=== PATIENT | male | born 1955 | race African-American/Black ===

== ENCOUNTER 2016-12-19 17:55 | Emergency (ER) | payer OTHER ==
[~2016-12-19 17:55] MED LIST: ACET1CAP18 PO; ASPI81CH14 PEG; BISA5TAB64 PEG; CLON0.2T G-TUBE; GABA100C4 PEG; GUAI100S10 PEG; HYDR12.57 PEG; LANTUS2P SQ; LEXA20TA G-TUBE; LISI40TA PEG; METO50TA G-TUBE; SENNSYP G-TUBE; ZANT150T2 PEG
[2016-12-19] MEDS ORDERED: IOHEXOL 350 MG/ML 10 ML VIAL (for RAD DIAG) IVCONTRAST ONE (17:56)
[2016-12-19] MEDS ORDERED: SODIUM CHLOR 0.9% 1000 ML INJ 1,000 ML IV SCH (19:07)
[2016-12-19 19:08] VITALS: BP 117/89; PULSE 58; RESP 18; TEMP 98.1; O2SAT 96
--- NOTE | 2016-12-19 19:12 | PD ---
HPI Chief Complaint: rule out sepsis Time Seen by Provider: 19:01 Travel History International Travel<30 days: No Contact w/Intl Traveler<30days: No Traveled to known affect area: No History of Present Illness HPI The patient is a 61-year-old male who presents to the emergency department via [facility] from the care home to rule out sepsis. The patient had a G-tube removed 2-3 weeks ago, then started having drainage from the wound which was cultured and apparently grew MRSA. The patient was sent to the emergency department to rule out sepsis. The patient has a history of previous stroke with right hemiplegia, is able to answer questions, but speech is difficult to understand. He denies any fever, nausea, vomiting, or abdominal pain. He does note his abdomen is somewhat distended, but states that is chronic. He denies abdominal pain or decrease in bowel movements or the passage of flatus. The patient states he is currently asymptomatic. Symptoms are mild, also exacerbated after G-tube was removed, no current alleviating factors. PFSH Past Medical History Depression: Yes Cerebrovascular Accident: Yes (R side paralysis, aphasia, dysphagia) Dementia: Yes Diabetes: Yes Diminished Hearing: No GERD: Yes Hypertension: Yes Neurologic: Yes (CVA) Past Surgical History Abdominal Surgery: Yes (PEG TUBE) Other Surgery: Yes ((UNKNOWN SX) MIDLINE VERTICAL SURGICAL SCAR ) Social History Alcohol Use: No Tobacco Use: No Substance Use: No Allergies-Medications (Allergen,Severity, Reaction): Coded Allergies: No Known Allergies (Verified , 10/06/15) Reported Meds & Prescriptions Reported Meds & Active Scripts Active Reported Metformin (Metformin HCl) 1,000 Mg Tab 1,000 Mg PO BIDPC Lantus Inj (Insulin Glargine) 1,000 Unit/10 Ml Vial 28 Units SQ HS Glucagon Emergency Inj Kit (Glucagon (Rdna) Inj Kit) 1 Mg Kit 1 Mg IM ONCE PRN Clonidine (Clonidine HCl) 0.2 Mg Tab 0.2 Mg PO BID Cephalexin 500 Mg Cap 500 Mg PO Q8H Biscolax Supp (Bisacodyl) 10 Mg Supp 10 Mg RECTAL DAILY PRN Atorvastatin (Atorvastatin Calcium) 10 Mg Tab 10 Mg PO HS Tylenol (Acetaminophen) 325 Mg Tab 650 Mg PO Q4HR PRN Lisinopril 40 Mg Tab 40 Mg PEG DAILY Hold for systolic B/P <100 Hydrochlorothiazide 12.5 Mg Cap 25 Mg PEG DAILY Hold for systolic B/P <100 Senna Liq (Senna) 176 Mg/5 Ml Syp 176 Mg G-TUBE DAILY Lantus Inj (Insulin Glargine) 1,000 Unit/10 Ml Vial 12 Units SQ AC BREAKFAST Hold for blood sugar 120 or less Gabapentin 100 Mg Cap 100 Mg PEG TID Metoprolol Tartrate 50 Mg Tab 50 Mg G-TUBE BID Hold if systolic B/P <110 Zantac (Ranitidine HCl) 150 Mg Tab 150 Mg PEG HS Kp Bisacodyl (Bisacodyl) 5 Mg Tab 5 Mg PEG BID PRN Lexapro (Escitalopram Oxalate) 20 Mg Tab 10 Mg G-TUBE DAILY Aspirin Adult Low Strength (Aspirin) 81 Mg Chew 81 Mg PEG DAILY Review of Systems Except as stated in HPI: all other systems reviewed are Neg General / Constitutional: No: Fever Cardiovascular: No: Chest Pain or Discomfort Respiratory: No: Shortness of Breath Gastrointestinal: No: Nausea, Vomiting, Abdominal Pain Musculoskeletal: No: Pain Skin: Positive Other (as noted in the history present illness) Physical Exam Narrative GENERAL: Awake, alert, pleasant 61-year-old male who appears his stated age and is in no acute respiratory distress. SKIN: Focused skin assessment warm/dry. HEAD: Atraumatic. Normocephalic. EYES: Pupils equal and round. No scleral icterus. No injection or drainage. ENT: No nasal bleeding or discharge. Mucous membranes pink and moist. NECK: Trachea midline. No JVD. CARDIOVASCULAR: Regular rate and rhythm. No murmur appreciated. Heart rate in the 60s. RESPIRATORY: No accessory muscle use. Clear to auscultation. Breath sounds equal bilaterally. GASTROINTESTINAL: Abdomen soft, mild distention, dressing in place over old gastrostomy tube site, minimal clear drainage. No rebound tenderness, guarding , rigidity. No surrounding erythema. MUSCULOSKELETAL: No obvious deformities. No clubbing. No cyanosis. Mild edema to the right lower extremity. NEUROLOGICAL: Awake and alert. Asymmetric right facial droop. Paralysis of the right upper extremity and right lower extremity. He is able to move his left upper extremity and left lower extremity without difficulty. PSYCHIATRIC: Appropriate mood and affect; insight and judgment normal. Data Data Last Documented VS Vital Signs Date Time Temp Pulse Resp B/P (MAP) Pulse Ox O2 Delivery O2 Flow Rate FiO2 12/19/16 19:42 64 20 12/19/16 19:37 96 Room Air 12/19/16 19:08 98.1 117/89 (98) Orders Orders Complete Blood Count With Diff (12/19/16 19:07) Comprehensive Metabolic Panel (12/19/16 19:07) Lactic Acid (12/19/16 19:07) Ct Abd/Pel W Iv Contrast(Rout) (12/19/16 19:07) Iv Access Insert/Monitor (12/19/16 19:07) Ecg Monitoring (12/19/16 19:07) Oximetry (12/19/16 19:07) Sodium Chlor 0.9% 1000 Ml Inj (Ns 1000 M (12/19/16 19:07) Sodium Chloride 0.9% Flush (Ns Flush) (12/19/16 19:15) Blood Culture (12/19/16 19:07) Iohexol 350 Inj (Omnipaque 350 Inj) (12/19/16 17:56) Labs Laboratory Tests Test 12/19/16 19:30 White Blood Count 8.4 TH/MM3 Red Blood Count 5.13 MIL/MM3 Hemoglobin 14.1 GM/DL Hematocrit 40.8 % Mean Corpuscular Volume 79.5 FL Mean Corpuscular Hemoglobin 27.5 PG Mean Corpuscular Hemoglobin Concent 34.7 % Red Cell Distribution Width 15.2 % Platelet Count 216 TH/MM3 Mean Platelet Volume 8.1 FL Neutrophils (%) (Auto) 62.1 % Lymphocytes (%) (Auto) 28.3 % Monocytes (%) (Auto) 7.7 % Eosinophils (%) (Auto) 1.4 % Basophils (%) (Auto) 0.5 % Neutrophils # (Auto) 5.2 TH/MM3 Lymphocytes # (Auto) 2.4 TH/MM3 Monocytes # (Auto) 0.6 TH/MM3 Eosinophils # (Auto) 0.1 TH/MM3 Basophils # (Auto) 0.0 TH/MM3 CBC Comment DIFF FINAL Differential Comment Blood Urea Nitrogen 19 MG/DL Creatinine 1.03 MG/DL Random Glucose 145 MG/DL Total Protein 7.4 GM/DL Albumin 3.0 GM/DL Calcium Level 8.7 MG/DL Alkaline Phosphatase 130 U/L Aspartate Amino Transf (AST/SGOT) 15 U/L Alanine Aminotransferase (ALT/SGPT) 29 U/L Total Bilirubin 0.4 MG/DL Sodium Level 137 MEQ/L Potassium Level 4.0 MEQ/L Chloride Level 100 MEQ/L Carbon Dioxide Level 30.4 MEQ/L Anion Gap 7 MEQ/L Estimat Glomerular Filtration Rate 89 ML/MIN Lactic Acid Level 2.2 mmol/L [facility] Medical Decision Making Medical Screen Exam Complete: Yes Emergency Medical Condition: Yes Medical Record Reviewed: Yes Interpretation(s) Last Impressions Abdomen/Pelvis CT 12/19/16 6297 Signed Impressions: Service Date/Time: Monday, December 19, 2016 22:47 - CONCLUSION: No evidence of abscess or other complication associated with previous gastrostomy tube. Gallstones. Left renal cysts. Prostatic enlargement. Justice Man MD Laboratory Tests Test 12/19/16 19:30 White Blood Count 8.4 TH/MM3 Red Blood Count 5.13 MIL/MM3 Hemoglobin 14.1 GM/DL Hematocrit 40.8 % Mean Corpuscular Volume 79.5 FL Mean Corpuscular Hemoglobin 27.5 PG Mean Corpuscular Hemoglobin Concent 34.7 % Red Cell Distribution Width 15.2 % Platelet Count 216 TH/MM3 Mean Platelet Volume 8.1 FL Neutrophils (%) (Auto) 62.1 % Lymphocytes (%) (Auto) 28.3 % Monocytes (%) (Auto) 7.7 % Eosinophils (%) (Auto) 1.4 % Basophils (%) (Auto) 0.5 % Neutrophils # (Auto) 5.2 TH/MM3 Lymphocytes # (Auto) 2.4 TH/MM3 Monocytes # (Auto) 0.6 TH/MM3 Eosinophils # (Auto) 0.1 TH/MM3 Basophils # (Auto) 0.0 TH/MM3 CBC Comment DIFF FINAL Differential Comment Blood Urea Nitrogen 19 MG/DL Creatinine 1.03 MG/DL Random Glucose 145 MG/DL Total Protein 7.4 GM/DL Albumin 3.0 GM/DL Calcium Level 8.7 MG/DL Alkaline Phosphatase 130 U/L Aspartate Amino Transf (AST/SGOT) 15 U/L Alanine Aminotransferase (ALT/SGPT) 29 U/L Total Bilirubin 0.4 MG/DL Sodium Level 137 MEQ/L Potassium Level 4.0 MEQ/L Chloride Level 100 MEQ/L Carbon Dioxide Level 30.4 MEQ/L Anion Gap 7 MEQ/L Estimat Glomerular Filtration Rate 89 ML/MIN Lactic Acid Level 2.2 mmol/L Differential Diagnosis Differential diagnosis includes abscess, cellulitis, infected wound, wound infection, sepsis. Narrative Course IV was established, labs are drawn and sent, and the patient was placed on cardiac telemetry monitoring and continuous pulse oximetry monitoring. Blood culture and lactic acid were sent to lab. CT of the abdomen and pelvis with IV contrast was ordered to rule out abscess. The patient was administered IV fluids. Lactic acid 2.2, the patient received IV fluids white count is normal. CT the abdomen and pelvis reveals no obvious abscess. The patient was placed on Bactrim and transferred back to the care home. Diagnosis Primary Impression: Infected wound Patient Instructions: General Instructions Additional Instructions: Medications as directed. Follow-up with your primary physician. Bactrim as directed. Please provide the patient a copy of CT results and lab results at discharge. Med/Other Pt SpecificInfo: Prescription(s) given Scripts Sulfamethoxazole-Trimethoprim (Bactrim DS) 800-160 Mg Tab 1 TAB PO BID for Infection, #20 TAB 0 Refills Prov: Rahul Caballero MD 12/19/16 Disposition: DISCHARGE HOME Condition: Stable Rahul Caballero MD Dec 19, 2016 19:12
[2016-12-19] MEDS ORDERED: SODIUM CHLORIDE 0.9% FLUSH 10 ML FLUSH IV FLUSH PRN (19:15)
[2016-12-19 19:37] VITALS: O2SAT 96
[2016-12-19] MEDS ORDERED: CEPH500C PO (19:55)
[2016-12-19] MEDS ORDERED: BISC10SU RECTAL (19:55)
[2016-12-19] MEDS ORDERED: TYLE325T PO (19:55)
[2016-12-19] MEDS ORDERED: ATOR10TA15 PO (19:55)
[2016-12-19] MEDS ORDERED: CLON0.2T PO (19:55)
[2016-12-19] MEDS ORDERED: GLUC1KIT IM (19:55)
[2016-12-19] MEDS ORDERED: LANTUS2P SQ (19:55)
[2016-12-19] MEDS ORDERED: METF1000 PO (19:55)
[2016-12-19 20:01] LABS: AUTOMATED NEUTROPHIL # 5.2 TH/MM3 (1.8-7.7); BASOPHIL % 0.5 % (0.0-2.0); EOSINOPHIL # 0.1 TH/MM3 (0-0.4); EOSINOPHIL % 1.4 % (0.0-4.0); HEMATOCRIT 40.8 % (39.0-51.0); HEMO FLAGS DIFF FINAL; LYMPH % 28.3 % (9.0-44.0); LYMPHOCYTE # 2.4 TH/MM3 (1.0-4.8); MEAN CELL VOLUME 79.5 FL (80.0-100.0); MEAN CORPUSCULAR HEMOGLOBIN 27.5 PG (27.0-34.0); MEAN CORPUSCULAR HGB CONC 34.7 % (32.0-36.0); MONO % 7.7 % (0.0-8.0); NEUT % 62.1 % (16.0-70.0); PLATELET COUNT 216 TH/MM3 (150-450); RED BLOOD COUNT 5.13 MIL/MM3 (4.50-5.90); RED CELL DISTRIBUTION WIDTH 15.2 % (11.6-17.2); WHITE BLOOD COUNT 8.4 TH/MM3 (4.0-11.0)
[2016-12-19 20:47] LABS: ANION GAP 7 MEQ/L (5-15); AST (GOT) 15 U/L (15-37); BICARBONATE 30.4 MEQ/L (21.0-32.0); BLOOD UREA NITROGEN 19 MG/DL (7-18); CHLORIDE 100 MEQ/L (98-107); GLOMERULAR FILTRATION RATE 89 ML/MIN (>89); SODIUM (NA) 137 MEQ/L (136-145)
[2016-12-19 20:48] LABS: ALT (GPT) 29 U/L (12-78)
[2016-12-19 20:50] LABS: ALKALINE PHOSPHATASE 130 U/L (45-117); TOTAL BILIRUBIN ADULT 0.4 MG/DL (0.2-1.0)
--- NOTE | 2016-12-19 23:10 | RADRPT ---
EXAM DATE/TIME: 12/19/2016 22:47 [facility] COMPARISON: No previous studies available for comparison. INDICATIONS : G-tube removal. Evaluate for abscess. IV CONTRAST: 100 cc Omnipaque 350 (iohexol) IV ORAL CONTRAST: No oral contrast ingested. RADIATION DOSE: 33.48 CTDIvol (mGy) ; Patient body habitus MEDICAL HISTORY : Dementia. Cerebrovascular disease. Hypertension.Diabetes SURGICAL HISTORY : Peg tube ENCOUNTER: Initial ACUITY: 1 day PAIN SCALE: 0/10 LOCATION: abdomen TECHNIQUE: Volumetric scanning of the abdomen and pelvis was performed. Using automated exposure control and ad justment of the mA and/or kV according to patient size, radiation dose was kept as low as reasonably achievable to obtain optimal diagnostic quality images. DICOM format image data is available electro nically for review and comparison. FINDINGS: LOWER LUNGS: The visualized lower lungs are clear. LIVER: Homogeneous density without lesion. There is no dilation of the biliary tree. There are multiple gal lstones in the gallbladder. SPLEEN: Normal size without lesion. PANCREAS: Within normal limits. KIDNEYS: Cysts involving the left kidney, largest a 3.4 cm cyst arising in the lateral upper pole cortex. No e vidence of hydronephrosis. Right kidney is unremarkable. ADRENAL GLANDS: 15 mm low density mass involving the left adrenal gland is likely benign adenoma. Right adrenal unrem arkable VASCULAR: There is no aortic aneurysm. BOWEL/MESENTERY: Tract associated with previous gastrostomy. No evidence of abscess or other complication. Bowel is ot herwise unremarkable.. ABDOMINAL WALL: Gastrostomy tract scar upper left paramedian abdomen RETROPERITONEUM: There is no lymphadenopathy. BLADDER: No wall thickening or mass. REPRODUCTIVE: Heterogeneous prostatic enlargement with mild impression on the bladder base. INGUINAL: There is no lymphadenopathy or hernia. MUSCULOSKELETAL: Within normal limits for patient age. CONCLUSION: No evidence of abscess or other complication associated with previous gastrostomy tube. Gallstones. Left renal cysts. Prostatic enlargement. Justice Man MD on December 19, 2016 at 23:02 Board Certified Radiologist. This report was verified electronically.
[2016-12-19] MEDS ORDERED: BACT800T5 PO (23:19)
[2016-12-19] MEDS ORDERED: SULFAMETHOXAZOLE-TRIMETHOPRIM DS 800-160 MG TAB PO ONE (23:30)
[2016-12-20 06:45] VITALS: BP 137/77; PULSE 56; RESP 18; O2SAT 96
[2016-12-20 07:54] VITALS: BP 132/76; PULSE 55; RESP 18; O2SAT 96
== END 2016-12-20 08:31 | disposition home or self-care (01) ==
LOC: NEPE 17:55
DX: L08.9 Local infection of the skin and subcutaneous tissue, unspecified (principal); E11.9 Type 2 diabetes mellitus without complications; I10 Essential (primary) hypertension; F03.90 Unspecified dementia, unspecified severity, without behavioral disturbance, psychotic disturbance, mood disturbance, and anxiety
CPT/HCPCS: 74177; 80053; 83605; 85025; 87040; 96360; 96361; 99285; J7030; Q9967

== ENCOUNTER 2016-12-23 13:07 | Emergency (ER) | payer OTHER ==
[~2016-12-23] VITALS: Ht 177.8 cm; Wt 127.0 kg
[~2016-12-23 13:07] MED LIST changes: -ACET1CAP18 PO; +ATOR10TA15 PO; +BACT800T5 PO; +BISC10SU RECTAL; +CEPH500C PO; -CLON0.2T G-TUBE; +CLON0.2T PO; +GLUC1KIT IM; -GUAI100S10 PEG; +METF1000 PO; +TYLE325T PO
[2016-12-23 13:17] VITALS: BP 103/64; PULSE 51; RESP 20; TEMP 98.8; O2SAT 97
[2016-12-23] MEDS ORDERED: SODIUM CHLORID 0.9% 500 ML INJ 500 ML IV ONE (13:45)
[2016-12-23] MEDS ORDERED: SILVER NITR/POTASSIUM NITRATE APPLICATORS TOPICAL ONE (13:45)
[2016-12-23 14:25] LABS: AUTOMATED NEUTROPHIL # 5.4 TH/MM3 (1.8-7.7); BASOPHIL % 0.4 % (0.0-2.0); EOSINOPHIL # 0.2 TH/MM3 (0-0.4); EOSINOPHIL % 1.8 % (0.0-4.0); HEMATOCRIT 41.8 % (39.0-51.0); HEMO FLAGS DIFF FINAL; LYMPH % 27.8 % (9.0-44.0); LYMPHOCYTE # 2.4 TH/MM3 (1.0-4.8); MEAN CELL VOLUME 79.9 FL (80.0-100.0); MEAN CORPUSCULAR HEMOGLOBIN 27.4 PG (27.0-34.0); MEAN CORPUSCULAR HGB CONC 34.3 % (32.0-36.0); MONO % 7.1 % (0.0-8.0); NEUT % 62.9 % (16.0-70.0); PLATELET COUNT 227 TH/MM3 (150-450); RED BLOOD COUNT 5.23 MIL/MM3 (4.50-5.90); RED CELL DISTRIBUTION WIDTH 15.1 % (11.6-17.2); WHITE BLOOD COUNT 8.5 TH/MM3 (4.0-11.0)
[2016-12-23 14:31] LABS: PROTHROMBIN TIME - PATIENT 10.8 SEC (9.8-11.6)
[2016-12-23 14:39] LABS: BICARBONATE 27.4 MEQ/L (21.0-32.0); POTASSIUM 4.3 MEQ/L (3.5-5.1)
--- NOTE | 2016-12-23 15:02 | PD ---
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 Patient had a G-tube that was taken out 1 month ago. Currently he is on honey thickened diet. He went to sit up today and he started to bleed from his stoma. They were concerned because of the bleeding which was continuous. Patient arrived with a blood pressure in 100s. He is awake. He is able to communicate although he is a aphonic. He is denying of any pain. Patient is not a good historian given his nonverbal status. [facility] Past Medical History Narrative Medical List of his past medical, surgical, social and family history is reviewed from the nursing note. Depression: Yes Cerebrovascular Accident: Yes Dementia: Yes Diabetes: Yes Patient Takes Glucophage: Yes Diminished Hearing: No GERD: Yes Hypertension: Yes Medical other: Yes (APHASIA, DYSPHAGIA, RUE, RLE, RIGHT FACIAL DROOP) Neurologic: Yes (CVA) Past Surgical History Abdominal Surgery: Yes (PEG TUBE) Other Surgery: Yes ((UNKNOWN SX) MIDLINE VERTICAL SURGICAL SCAR ) Social History Alcohol Use: No Tobacco Use: No Substance Use: No Allergies-Medications (Allergen,Severity, Reaction): Coded Allergies: No Known Allergies (Verified , 12/23/16) Comments No known drug allergies. Reported Meds & Prescriptions Reported Meds & Active Scripts Active Bactrim DS (Sulfamethoxazole-Trimethoprim) 800-160 Mg Tab 1 Tab PO BID Reported Metformin (Metformin HCl) 1,000 Mg Tab 1,000 Mg PO BIDPC Lantus Inj (Insulin Glargine) 1,000 Unit/10 Ml Vial 28 Units SQ HS Glucagon Emergency Inj Kit (Glucagon (Rdna) Inj Kit) 1 Mg Kit 1 Mg IM ONCE PRN Clonidine (Clonidine HCl) 0.2 Mg Tab 0.2 Mg PO BID Biscolax Supp (Bisacodyl) 10 Mg Supp 10 Mg RECTAL DAILY PRN Atorvastatin (Atorvastatin Calcium) 10 Mg Tab 10 Mg PO HS Tylenol (Acetaminophen) 325 Mg Tab 650 Mg PO Q4HR PRN Lisinopril 40 Mg Tab 40 Mg PEG DAILY Hold for systolic B/P <100 Hydrochlorothiazide 12.5 Mg Cap 25 Mg PEG DAILY Hold for systolic B/P <100 Senna Liq (Senna) 176 Mg/5 Ml Syp 176 Mg G-TUBE DAILY Lantus Inj (Insulin Glargine) 1,000 Unit/10 Ml Vial 12 Units SQ AC BREAKFAST Hold for blood sugar 120 or less Gabapentin 100 Mg Cap 100 Mg PEG TID Metoprolol Tartrate 50 Mg Tab 50 Mg G-TUBE BID Hold if systolic B/P <110 Zantac (Ranitidine HCl) 150 Mg Tab 150 Mg PEG HS Kp Bisacodyl (Bisacodyl) 5 Mg Tab 5 Mg PEG BID PRN Lexapro (Escitalopram Oxalate) 20 Mg Tab 10 Mg G-TUBE DAILY Aspirin Adult Low Strength (Aspirin) 81 Mg Chew 81 Mg PEG DAILY Narrative Medication List of his home medications reviewed from the nursing note. Review of Systems Except as stated in HPI: all other systems reviewed are Neg Gastrointestinal: Positive: Other (bleeding from G-tube stoma) Physical Exam Narrative GENERAL: Awake, alert, morbidly obese, nonverbal secondary to prior CVA SKIN: Focused skin assessment warm/dry. HEAD: Atraumatic. Normocephalic. EYES: Pupils equal and round. No scleral icterus. No injection or drainage. ENT: No nasal bleeding or discharge. Mucous membranes pink and moist. NECK: Trachea midline. No JVD. CARDIOVASCULAR: Regular rate and rhythm. No murmur appreciated. RESPIRATORY: No accessory muscle use. Clear to auscultation. Breath sounds equal bilaterally. GASTROINTESTINAL: Abdomen soft, non-tender, nondistended. Hepatic and splenic margins not palpable. G-tube stoma bleeding bright red blood continuously MUSCULOSKELETAL: No obvious deformities. No clubbing. No cyanosis. No edema. NEUROLOGICAL: Awake and alert. No obvious cranial nerve deficits. Motor grossly within normal limits. Nonverbal PSYCHIATRIC: Appropriate mood and affect; insight and judgment normal. Data Data Last Documented VS Vital Signs Date Time Temp Pulse Resp B/P (MAP) Pulse Ox O2 Delivery O2 Flow Rate FiO2 12/23/16 18:01 12/23/16 15:23 97.5 53 99 12/23/16 14:09 Room Air 12/23/16 13:17 20 Orders Orders Silver Nitrate Applicators (Silver Nitra (12/23/16 13:45) Complete Blood Count With Diff (12/23/16 13:39) Basic Metabolic Panel (Bmp) (12/23/16 13:39) Ct Abd/Pel W/O Iv Contrast (12/23/16 ) Sodium Chlorid 0.9% 500 Ml Inj (Ns 500 M (12/23/16 13:45) Type And Screen (12/23/16 13:41) Prothrombin Time / Inr (Pt) (12/23/16 13:41) Ed Discharge Order (12/23/16 15:45) Labs Laboratory Tests Test 12/23/16 14:00 White Blood Count 8.5 TH/MM3 Red Blood Count 5.23 MIL/MM3 Hemoglobin 14.3 GM/DL Hematocrit 41.8 % Mean Corpuscular Volume 79.9 FL Mean Corpuscular Hemoglobin 27.4 PG Mean Corpuscular Hemoglobin Concent 34.3 % Red Cell Distribution Width 15.1 % Platelet Count 227 TH/MM3 Mean Platelet Volume 8.5 FL Neutrophils (%) (Auto) 62.9 % Lymphocytes (%) (Auto) 27.8 % Monocytes (%) (Auto) 7.1 % Eosinophils (%) (Auto) 1.8 % Basophils (%) (Auto) 0.4 % Neutrophils # (Auto) 5.4 TH/MM3 Lymphocytes # (Auto) 2.4 TH/MM3 Monocytes # (Auto) 0.6 TH/MM3 Eosinophils # (Auto) 0.2 TH/MM3 Basophils # (Auto) 0.0 TH/MM3 CBC Comment DIFF FINAL Differential Comment Prothrombin Time 10.8 SEC Prothromb Time International Ratio 1.0 RATIO Blood Urea Nitrogen 21 MG/DL Creatinine 1.39 MG/DL Random Glucose 60 MG/DL Calcium Level 9.0 MG/DL Sodium Level 136 MEQ/L Potassium Level 4.3 MEQ/L Chloride Level 102 MEQ/L Carbon Dioxide Level 27.4 MEQ/L Anion Gap 7 MEQ/L Estimat Glomerular Filtration Rate 63 ML/MIN MDM Medical Decision Making Medical Screen Exam Complete: Yes Emergency Medical Condition: Yes Medical Record Reviewed: Yes Differential Diagnosis Bleeding from G-tube stoma Narrative Course 3 PM blood test results are back. Glucose is low. He has been given by mouth orange juice and a repeat sugar will be done and half an hour. Awaiting from the CT scan. Please refer to my procedure note regarding the hemostasis. Patient is not bleeding anymore since the procedure from the G-tube stoma site. Awaiting for CT at this point. CT is negative and repeat glucose is within normal limit I will discharge him back to the [facility]. 3:37 PM the repeat blood sugar was 76 after a couple following juice. He is given more juice to drink. CT scan report in the meanwhile has come back not show any significant subcutaneous or intra-abdominal hemorrhage. I'm comfortable discharging him home. There were some incidental findings of adrenal adenoma and multiple gallstones. Procedures Procedure Narrative Hemorrhage control from G-tube stoma: Direct pressure was applied to the G-tube stoma for 15 minutes from where continues bleeding was noticed. The bleeding seemed to have stopped. At this point I used two silver nitrate cautery sticks into the stoma directly. Patient tolerated the procedure well. The bleeding stopped. EKG Prior to Arrival: No Diagnosis Primary Impression: bleeding from gastric stoma Additional Impressions: hypoglycemia Cholelithiasis Qualified Codes: K80.20 - Calculus of gallbladder without cholecystitis without obstruction Adrenal adenoma Qualified Codes: D35.00 - Benign neoplasm of unspecified adrenal gland Referrals: Primary Care Physician 2 days Additional Instructions: Keep the wound clean and dry. Dry nonadhesive dressing. Follow-up with primary care. Med/Other Pt SpecificInfo: No Change to Meds Disposition: 01 DISCHARGE HOME Condition: Stable Mackenzie Clements MD Dec 23, 2016 15:02
[2016-12-23 15:23] VITALS: BP 126/76; PULSE 53; TEMP 97.5; O2SAT 99
--- NOTE | 2016-12-23 15:23 | RADRPT ---
EXAM DATE/TIME: 12/23/2016 14:23 [facility] COMPARISON: CTA CHEST W 3D RECON, October 26, 2010, 16:19. CT ABDOMEN & PELVIS W CONTRAST, December 19, 2016, 22:4 7. INDICATIONS : Abdominal pain. ORAL CONTRAST: No oral contrast ingested. RADIATION DOSE: 29.37 CTDIvol (mGy) ; Patient body habitus MEDICAL HISTORY : Dementia. Hypertension. Diabetes SURGICAL HISTORY : None. ENCOUNTER: Initial ACUITY: 1 day PAIN SCALE: 5/10 LOCATION: Bilateral abdomen TECHNIQUE: Volumetric scanning of the abdomen and pelvis was performed. Using automated exposure control and ad justment of the mA and/or kV according to patient size, radiation dose was kept as low as reasonably achievable to obtain optimal diagnostic quality images. DICOM format image data is available electro nically for review and comparison. FINDINGS: The limited portion of the lung base visualized is clear. The appearance of the liver, spleen, pancreas, right adrenal gland and right kidney is within normal limits. The exam demonstrates a 3.6 cm cyst within the left kidney. There is a 1.6 x 2.4 cm adrenal n odule on the left. This is stable compared to the previous exam dated 12/19/16. This is slightly larg er than seen on previous CT of the thorax dated 10/26/10. It measured 1.5 x 2.0 cm at that time. There are multiple calcified gallstones filling the gallbladder. There is no free intraperitoneal air. No free intraperitoneal fluid is identified. There is no retrop eritoneal lymphadenopathy. The aorta is normal in caliber. The visualized loops of small and large bowel are unremarkable. There is no free fluid within the pelvis. No iliac or inguinal adenopathy is present. The visualized loops of small and large bowel within the pelvis are unremarkable. The visualized bony structures demonstrate mild degenerative changes but are otherwise intact. CONCLUSION: 1. 1.6 x 2.4 cm left adrenal nodule. This measures 28 Hounsfield units which is indeterminate. It was n't present back in 2010 but appears slightly larger. This would suggest it is likely benign. 2. 3.6 cm left renal cyst. 3. Multiple calcified gallstones in the gallbladder. 4. No free intraperitoneal air or free to peritoneal fluid identified. 5. Degenerative changes within the lumbar spine. Darius Chacko MD on December 23, 2016 at 15:12 Board Certified Radiologist. This report was verified electronically.
== END 2016-12-23 18:07 | disposition home or self-care (01) ==
LOC: NEPC 13:07
DX: K94.21 Gastrostomy hemorrhage (principal); F32.9 Major depressive disorder, single episode, unspecified; Z86.73 Personal history of transient ischemic attack (TIA), and cerebral infarction without residual deficits; E11.9 Type 2 diabetes mellitus without complications; F03.90 Unspecified dementia, unspecified severity, without behavioral disturbance, psychotic disturbance, mood disturbance, and anxiety; K21.9 Gastro-esophageal reflux disease without esophagitis; I10 Essential (primary) hypertension; Z79.4 Long term (current) use of insulin; Z79.899 Other long term (current) drug therapy
CPT/HCPCS: 12001; 74176; 80048; 85025; 85610; 86850; 86900; 86901; 96360; 99284; J7040